=== PATIENT | female | born 1950 | race Caucasian/White ===

== ENCOUNTER 2017-02-01 19:22 | Emergency (ER) | payer MEDICARE, BC ==
[~2017-02-01 19:22] MED LIST: ADVAIR DIS1 PUFF/DO1 IH; CALTRATE-600 D600 MG PO; COUMADIN DPS3 MG PO; COUMADIN1 MG PO; EFFEXOR DPS75 MG PO; PRAVACHOL80 MG PO; PROVENTIL HFA6.7 GM IH; VITAMIN D-32000 UNI1 PO
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
== END 2017-02-01 21:15 | disposition home or self-care (01) ==
LOC: ER 19:22
DX: S62.521A Displaced fracture of distal phalanx of right thumb, initial encounter for closed fracture (principal); S61.231A Puncture wound without foreign body of left index finger without damage to nail, initial encounter; Z88.5 Allergy status to narcotic agent; Z79.01 Long term (current) use of anticoagulants; Z79.899 Other long term (current) drug therapy; W54.0XXA Bitten by dog, initial encounter